=== PATIENT | female | born 1990 | race African-American/Black ===

== ENCOUNTER 2022-10-31 01:47 | Emergency (ER) | payer MEDICAID ==
[~2022-10-31] VITALS: Ht 177.8 cm; Wt 91.0 kg
[2022-10-31 01:54] VITALS: BP 143/94
[2022-10-31] MEDS ORDERED: CEPH500C2 MT (05:38)
== END 2022-10-31 06:02 | disposition home or self-care (01) ==
LOC: ER 01:47
DX: J02.9 Acute pharyngitis, unspecified (principal); Z98.890 Other specified postprocedural states
CPT/HCPCS: 99283